=== PATIENT | male | born 1955 | race African-American/Black ===

== ENCOUNTER 2016-08-20 16:28 | Emergency (ER) | payer OTHER ==
[~2016-08-20] VITALS: Ht 172.7 cm; Wt 78.0 kg
[~2016-08-20 16:28] MED LIST: [UNRECOGNIZED DRUG - REMARK] PO
[2016-08-20] MEDS ORDERED: SODIUM CHLORIDE 0.9% 1,000 ML IV ONE (19:15)
[2016-08-20] MEDS ORDERED: ACETAMINOPHEN 500 MG TABLET PO ONE (19:15)
[2016-08-20] MEDS ORDERED: MORPHINE SULFATE 4 MG/ML SYRINGE IVP ONE (19:15)
[2016-08-20] MEDS ORDERED: ONDANSETRON HCL 4 MG/2 ML VIAL IVP ONE (19:15)
[2016-08-20 19:44] LABS: BASOPHILS % (AUTO) 0.1 % (0.0-2.0); EOSINOPHILS % (AUTO) 0.8 % (1.0-6.0); HEMATOCRIT 41.7 % (41-53); HEMOGLOBIN 14.2 g/dL (13.5-17.5); LYMPHOCYTES # (AUTO) 1.4 K/uL (1.0-4.8); LYMPHOCYTES % (AUTO) 16.9 % (22.0-44.0); MEAN CORPUSCULAR HEMOGLOBIN 32.1 pg (26.0-34.0); MEAN CORPUSCULAR HGB CONC 34.1 G/dL (31.0-37.0); MEAN CORPUSCULAR VOLUME 94 fL (80-100); MONOCYTES # (AUTO) 0.3 K/uL (0.1-1.0); MONOCYTES % (AUTO) 3.4 % (2.0-9.0); NEUTROPHILS # (AUTO) 6.4 K/uL (1.8-7.7); NEUTROPHILS % (AUTO) 78.8 % (40.0-70.0); PLATELET COUNT (AUTO) 127 K/uL (150-450); RED BLOOD CELL COUNT(AUTO) 4.44 MIL/uL (4.50-5.90); RED CELL DISTRIBUTION WIDTH 13.1 % (11.5-14.5); WHITE BLOOD COUNT (AUTO) 8.1 K/uL (4.5-11.0)
[2016-08-20 19:54] LABS: ANION GAP 7 mmol/L (8-16); CALCIUM, TOTAL 7.6 mg/dL (8.8-10.5); CARBON DIOXIDE 24 mmol/L (22-29); CHLORIDE 100 mmol/L (98-107); CREATININE 1.05 mg/dL (0.60-1.30); GLOMERULAR FILTR. RATE CALC > 60 mL/min (>60); POTASSIUM 3.5 mmol/L (3.5-5.1); SODIUM SERUM 131 mmol/L (136-145); UREA NITROGEN, BLOOD 12 mg/dL (7-18)
[2016-08-20 20:00] LABS: ALANINE AMINOTRANSFERASE 42 U/L (12-78); ASPARTATE AMINOTRANSFERASE 30 U/L (15-37); BILIRUBIN,TOTAL 0.8 mg/dL (0.1-1.0); TOTAL PROTEIN, SERUM 6.7 g/dL (6.4-8.2)
[2016-08-20 20:03] LABS: LACTIC ACID 0.7 mmol/L (0.4-2.0)
[2016-08-20 20:21] LABS: APPEARANCE,URINE CLEAR (CLEAR); GLUCOSE, URINE (UA) NEGATIVE (NEGATIVE); KETONES,URINE NEGATIVE (NEGATIVE); LEUKOCYTE ESTERASE ,URINE TRACE (NEGATIVE); OCCULT BLOOD,URINE TRACE (NEGATIVE); PROTEIN,URINE NEGATIVE (NEGATIVE)
[2016-08-20 20:22] LABS: ADD UA MICROSCOPIC YES
[2016-08-20 20:28] LABS: RBC,URINE 0-2 /HPF (0-2)
[2016-08-20 20:29] LABS: SQUAMOUS EPITHELIAL CELL,UR Rare /LPF (None Seen)
[2016-08-20] MEDS ORDERED: CefTRIAXone 1 GM/DEXTROSE 50 ML IV ONE (20:45)
[2016-08-20 22:19] VITALS: BP 118/67
[2016-08-21] MEDS ORDERED: IBUP-1547 PO (13:20)
[2016-08-21] MEDS ORDERED: MULT-1249 PO (13:20)
[2016-08-21] MEDS ORDERED: EMTR1TAB11 PO (13:20)
[2016-08-21] MEDS ORDERED: METR250 PO (13:20)
[2016-08-21] MEDS ORDERED: [UNRECOGNIZED DRUG - CODE] PO (13:20)
[2016-08-21] MEDS ORDERED: SULF1TAB42 PO (13:20)
[2016-08-21] MEDS ORDERED: DARU1TAB PO (13:20)
[2016-08-21] MEDS ORDERED: ALBU8HFA IH (13:20)
[2016-08-21] MEDS ORDERED: BECL8.7A6 IH (13:20)
== END 2016-08-20 22:23 | disposition home or self-care (01) ==
LOC: EMS 16:30
DX: N39.0 Urinary tract infection, site not specified (principal); M25.552 Pain in left hip; F14.10 Cocaine abuse, uncomplicated; F17.210 Nicotine dependence, cigarettes, uncomplicated; Z59.0 Homelessness
CPT/HCPCS: 36415; 71010; 73503; 80053; 80307; 81001; 83605; 85025; 87040; 87077; 87086; 87186; 93005; 96361; 96365; 96375; 99285; G0480; J0696; J2270; J2405; J7030

== ENCOUNTER 2016-08-21 09:47 | Emergency (ER) | payer OTHER ==
[~2016-08-21] VITALS: Ht 172.7 cm; Wt 63.0 kg
[2016-08-21] MEDS ORDERED: KETOROLAC TROMETHAMINE 30 MG/ML VIAL IM ONE (12:30)
[2016-08-21] MEDS ORDERED: SULF1TAB42 PO (13:20)
[2016-08-21] MEDS ORDERED: [UNRECOGNIZED DRUG - CODE] PO (13:20)
[2016-08-21] MEDS ORDERED: EMTR1TAB11 PO (13:20)
[2016-08-21] MEDS ORDERED: BECL8.7A6 IH (13:20)
[2016-08-21] MEDS ORDERED: MULT-1249 PO (13:20)
[2016-08-21] MEDS ORDERED: IBUP-1547 PO (13:20)
[2016-08-21] MEDS ORDERED: ALBU8HFA IH (13:20)
[2016-08-21] MEDS ORDERED: DARU1TAB PO (13:20)
[2016-08-21] MEDS ORDERED: METR250 PO (13:20)
[2016-08-21 13:31] LABS: APPEARANCE,URINE CLEAR (CLEAR); GLUCOSE, URINE (UA) NEGATIVE (NEGATIVE); KETONES,URINE NEGATIVE (NEGATIVE); LEUKOCYTE ESTERASE ,URINE NEGATIVE (NEGATIVE); OCCULT BLOOD,URINE NEGATIVE (NEGATIVE); PROTEIN,URINE NEGATIVE (NEGATIVE)
[2016-08-21 13:37] LABS: ADD UA MICROSCOPIC NO
[2016-08-21 13:52] VITALS: BP 147/88
== END 2016-08-21 14:07 | disposition home or self-care (01) ==
LOC: EMS 09:49
DX: M79.605 Pain in left leg (principal); G89.29 Other chronic pain; F17.210 Nicotine dependence, cigarettes, uncomplicated; F14.90 Cocaine use, unspecified, uncomplicated
CPT/HCPCS: 81003; 96372; 99283; J1885

== ENCOUNTER 2016-10-13 22:42 | Emergency (ER) | payer OTHER ==
[~2016-10-13] VITALS: Ht 172.7 cm; Wt 81.8 kg
[~2016-10-13 22:42] MED LIST changes: +ALBU8HFA IH; +BECL8.7A6 IH; +DARU1TAB PO; +EMTR1TAB11 PO; +IBUP-1547 PO; +METR250 PO; +MULT-1249 PO; +SULF1TAB42 PO; +[UNRECOGNIZED DRUG - CODE] PO
[2016-10-14 01:39] VITALS: BP 127/80
[2016-10-14] MEDS ORDERED: KETOROLAC TROMETHAMINE 60 MG/2 ML VIAL IM ONE (02:15)
== END 2016-10-14 02:52 | disposition home or self-care (01) ==
LOC: EMS 22:45
DX: M25.552 Pain in left hip (principal); G89.29 Other chronic pain; F17.210 Nicotine dependence, cigarettes, uncomplicated; F14.90 Cocaine use, unspecified, uncomplicated
CPT/HCPCS: 29130; 96372; 99283; J1885

== ENCOUNTER 2017-01-09 15:20 | Emergency (ER) | payer OTHER ==
[~2017-01-09] VITALS: Ht 172.7 cm; Wt 78.2 kg
[~2017-01-09 15:20] MED LIST changes: -EMTR1TAB11 PO; -IBUP-1547 PO; +IBUP-2071 PO; +TRUVT PO
[2017-01-09] MEDS ORDERED: NYSTATIN 500,000 UNITS/5 ML SUSPENSION UDCUP PO ONE (16:00)
[2017-01-09 16:06] LABS: BASOPHILS # (AUTO) 0.12 K/uL (0.00-0.20); BASOPHILS % (AUTO) 1.8 % (0.0-2.0); EOSINOPHILS % (AUTO) 0.03 % (1.0-6.0); HEMATOCRIT 38.4 % (41-53); HEMOGLOBIN 12.6 g/dL (13.5-17.5); LYMPHOCYTES # (AUTO) 0.8 K/uL (1.0-4.8); LYMPHOCYTES % (AUTO) 11.9 % (22.0-44.0); MEAN CORPUSCULAR HEMOGLOBIN 31.3 pg (26.0-34.0); MEAN CORPUSCULAR HGB CONC 32.8 G/dL (31.0-37.0); MEAN CORPUSCULAR VOLUME 95 fL (80-100); MONOCYTES # (AUTO) 1.2 K/uL (0.1-1.0); MONOCYTES % (AUTO) 16.4 % (2.0-9.0); NEUTROPHILS # (AUTO) 4.9 K/uL (1.8-7.7); NEUTROPHILS % (AUTO) 69.9 % (40.0-70.0); PLATELET COUNT (AUTO) 136 K/uL (150-450); RED BLOOD CELL COUNT(AUTO) 4.03 MIL/uL (4.50-5.90)
[2017-01-09 16:18] LABS: ANION GAP 5 mmol/L (8-16); CARBON DIOXIDE 26 mmol/L (22-29); CHLORIDE 103 mmol/L (98-107); CREATININE 1.07 mg/dL (0.60-1.30); POTASSIUM 3.9 mmol/L (3.5-5.1); SODIUM SERUM 134 mmol/L (136-145); UREA NITROGEN, BLOOD 13 mg/dL (7-18)
[2017-01-09 16:19] LABS: CALCIUM, TOTAL 8.1 mg/dL (8.8-10.5); GLOMERULAR FILTR. RATE CALC > 60 mL/min (>60)
[2017-01-09 16:21] LABS: INR 1.3 (0.9-1.1); PROTHROMBIN TIME 13.4 SEC (9.4-11.6)
[2017-01-09 16:34] LABS: B-TYPE NATRIURETIC PEPTIDE 48 pg/mL (0-100)
[2017-01-09 16:48] LABS: ALANINE AMINOTRANSFERASE 46 U/L (12-78); ALBUMIN 2.7 g/dL (3.4-5.0); ASPARTATE AMINOTRANSFERASE 43 U/L (15-37); BILIRUBIN,TOTAL 0.7 mg/dL (0.1-1.0); CREATINE KINASE MB 3.8 ng/mL (0-5); CREATINE KINASE, TOTAL 460 U/L (39-308); TOTAL PROTEIN, SERUM 6.4 g/dL (6.4-8.2)
[2017-01-09 17:29] LABS: APPEARANCE,URINE CLEAR (CLEAR); GLUCOSE, URINE (UA) NEGATIVE (NEGATIVE); KETONES,URINE NEGATIVE (NEGATIVE); LEUKOCYTE ESTERASE ,URINE NEGATIVE (NEGATIVE); OCCULT BLOOD,URINE NEGATIVE (NEGATIVE); PROTEIN,URINE NEGATIVE (NEGATIVE)
[2017-01-09 17:35] LABS: ADD UA MICROSCOPIC NO
[2017-01-09 18:45] VITALS: BP 113/67
[2017-01-10 08:10] LABS: LYMPHS % FOR TCELL PROFILE 15 % (Not Estab.)
[2017-01-10 15:30] LABS: ABSOLUTE CD19 55 /uL (12-645); ABSOLUTE CD3 774 /uL (622-2402); ABSOLUTE CD4 COUNT 41 /uL (359-1519); ABSOLUTE NATURAL KILLER CELLS 164 /uL (24-406); PERCENT CD19 5.5 % (3.3-25.4); PERCENT CD4 4.1 % (30.8-58.5); PERCENT NATURAL KILLER CELLS 16.4 % (1.4-19.4); TCELL %CD3 77.4 % (57.5-86.2)
== END 2017-01-09 19:11 | disposition home or self-care (01) ==
LOC: EMS 15:23
DX: B37.9 Candidiasis, unspecified (principal); J40 Bronchitis, not specified as acute or chronic; J32.9 Chronic sinusitis, unspecified; F14.90 Cocaine use, unspecified, uncomplicated; F17.210 Nicotine dependence, cigarettes, uncomplicated
CPT/HCPCS: 86355; 86357; 86359; 86360; 93005; 99285

== ENCOUNTER 2019-07-01 06:48 | Emergency (ER) | payer OTHER ==
[~2019-07-01] VITALS: Ht 167.6 cm; Wt 74.5 kg
[~2019-07-01 06:48] MED LIST changes: +[UNRECOGNIZED DRUG - CODE] PO; -[UNRECOGNIZED DRUG - CODE] PO
[2019-07-01] MEDS ORDERED: KETOROLAC TROMETHAMINE 30 MG/ML VIAL IM ONE (07:30)
[2019-07-01 15:33] VITALS: BP 150/90
== END 2019-07-01 15:47 | disposition home or self-care (01) ==
LOC: EMS 06:48
DX: M25.552 Pain in left hip (principal); F17.210 Nicotine dependence, cigarettes, uncomplicated; Z59.0 Homelessness; Z79.899 Other long term (current) drug therapy
CPT/HCPCS: 73503; 96372; 99285; J1885

== ENCOUNTER 2019-07-30 12:15 | Emergency (ER) | payer OTHER ==
[~2019-07-30] VITALS: Ht 172.7 cm; Wt 69.5 kg
[~2019-07-30 12:15] MED LIST changes: -SULF1TAB42 PO; -[UNRECOGNIZED DRUG - CODE] PO
[2019-07-30] MEDS ORDERED: KETOROLAC TROMETHAMINE 30 MG/ML VIAL IM ONE (14:00)
[2019-07-30] MEDS ORDERED: LIDOCAINE 5% TRANSDERMAL PATCH TD ONE (14:00)
[2019-07-30] MEDS ORDERED: HYDROCODONE/ACETAMINOPHEN 5-325 MG TABLET PO ONE (14:00)
[2019-07-30 15:19] VITALS: BP 147/81
== END 2019-07-30 16:25 | disposition home or self-care (01) ==
LOC: EMS 12:17
DX: M25.552 Pain in left hip (principal); F17.210 Nicotine dependence, cigarettes, uncomplicated; F12.90 Cannabis use, unspecified, uncomplicated; F14.90 Cocaine use, unspecified, uncomplicated; G89.29 Other chronic pain; Z59.0 Homelessness
CPT/HCPCS: 73503; 96372; 99283; 99406; J1885

== ENCOUNTER 2019-09-06 10:31 | Emergency (ER) | payer OTHER ==
[~2019-09-06] VITALS: Ht 172.7 cm; Wt 75.0 kg
[2019-09-06 10:37] VITALS: BP 128/82
[2019-09-06] MEDS ORDERED: KETOROLAC TROMETHAMINE 30 MG/ML VIAL IM ONE (11:30)
== END 2019-09-06 11:39 | disposition home or self-care (01) ==
LOC: EMS 10:35
DX: M25.552 Pain in left hip (principal); F17.210 Nicotine dependence, cigarettes, uncomplicated; F14.90 Cocaine use, unspecified, uncomplicated; F12.90 Cannabis use, unspecified, uncomplicated; Z59.0 Homelessness; Z79.899 Other long term (current) drug therapy
CPT/HCPCS: 96372; 99283; 99406; J1885

== ENCOUNTER 2019-10-01 05:35 | Emergency (ER) | payer OTHER ==
[~2019-10-01] VITALS: Ht 172.7 cm; Wt 68.2 kg
[2019-10-01 06:43] VITALS: BP 115/83
[2019-10-01] MEDS ORDERED: GABAPENTIN 100 MG CAPSULE PO ONE (06:45)
[2019-10-01] MEDS ORDERED: DEXAMETHASONE SOD PHOS 4 MG/ML 5 ML VIAL IM ONE (06:45)
== END 2019-10-01 07:30 | disposition home or self-care (01) ==
LOC: EMS 05:35
DX: M16.12 Unilateral primary osteoarthritis, left hip (principal); M79.605 Pain in left leg; G89.29 Other chronic pain; F17.210 Nicotine dependence, cigarettes, uncomplicated; F14.90 Cocaine use, unspecified, uncomplicated; F12.90 Cannabis use, unspecified, uncomplicated; Z59.0 Homelessness
CPT/HCPCS: 96372; 99283; J1100

== ENCOUNTER 2019-10-14 05:43 | Emergency (ER) | payer OTHER ==
[~2019-10-14] VITALS: Ht 172.7 cm; Wt 68.2 kg
[2019-10-14] MEDS ORDERED: ACETAMINOPHEN 500 MG TABLET PO ONE (06:45)
[2019-10-14] MEDS ORDERED: KETOROLAC TROMETHAMINE 30 MG/ML VIAL IM ONE (06:45)
[2019-10-14] MEDS ORDERED: LIDOCAINE 5% TRANSDERMAL PATCH TD ONE (06:45)
[2019-10-14 08:13] VITALS: BP 132/97
== END 2019-10-14 08:16 | disposition home or self-care (01) ==
LOC: EMS 05:47
DX: M25.552 Pain in left hip (principal); F17.210 Nicotine dependence, cigarettes, uncomplicated; F14.90 Cocaine use, unspecified, uncomplicated; F12.90 Cannabis use, unspecified, uncomplicated; Z59.0 Homelessness
CPT/HCPCS: 73521; 96372; 99283; J1885

== ENCOUNTER 2019-10-21 06:24 | Emergency (ER) | payer OTHER ==
[~2019-10-21] VITALS: Ht 175.3 cm; Wt 72.7 kg
[2019-10-21] MEDS ORDERED: HYDROCODONE/ACETAMINOPHEN 5-325 MG TABLET PO ONE (08:15)
[2019-10-21 08:45] VITALS: BP 129/67
== END 2019-10-21 09:15 | disposition home or self-care (01) ==
LOC: EMS 06:24
DX: M96.89 Other intraoperative and postprocedural complications and disorders of the musculoskeletal system (principal); M25.552 Pain in left hip; Y83.8 Other surgical procedures as the cause of abnormal reaction of the patient, or of later complication, without mention of misadventure at the time of the procedure; Y82.8 Other medical devices associated with adverse incidents

== ENCOUNTER 2019-10-31 06:58 | Emergency (ER) | payer OTHER ==
[~2019-10-31] VITALS: Ht 172.7 cm; Wt 72.7 kg
[2019-10-31] MEDS ORDERED: KETOROLAC TROMETHAMINE 30 MG/ML VIAL IM ONE (08:00)
[2019-10-31] MEDS ORDERED: HYDROCODONE/ACETAMINOPHEN 5-325 MG TABLET PO ONE (08:00)
[2019-10-31 10:34] LABS: AMPHET/METH SCREEN,URINE POSITIVE (NEGATIVE); BARBITURATE SCREEN, URINE NEGATIVE (NEGATIVE); BENZODIAZEPINES SCREEN,URINE NEGATIVE (NEGATIVE); CANNABINOID SCREEN,URINE NEGATIVE (NEGATIVE); COCAINE SCREEN,URINE POSITIVE (NEGATIVE); METHADONE SCREEN, URINE NEGATIVE (NEGATIVE); OPIATE SCREEN,URINE POSITIVE (NEGATIVE); PHENCYCLIDINE SCREEN,URINE NEGATIVE (NEGATIVE)
[2019-10-31 11:39] VITALS: BP 141/82
== END 2019-10-31 11:49 | disposition home or self-care (01) ==
LOC: EMS 06:58
DX: M25.552 Pain in left hip (principal); G89.29 Other chronic pain; F19.10 Other psychoactive substance abuse, uncomplicated; F17.210 Nicotine dependence, cigarettes, uncomplicated; F14.90 Cocaine use, unspecified, uncomplicated; F12.90 Cannabis use, unspecified, uncomplicated; Z86.73 Personal history of transient ischemic attack (TIA), and cerebral infarction without residual deficits; Z59.0 Homelessness
CPT/HCPCS: 80307; 96372; 99285; J1885